=== PATIENT | male | born 1970 | race American Indian/Alaskan Native ===

== ENCOUNTER 2020-06-23 15:20 | Emergency (ER) | payer SELFPAY ==
[2020-06-23 15:40] VITALS: BP 159/103
--- NOTE | 2020-06-23 15:40 | Emergency Department Report ---
ED Lower Extremity HPI - General Chief Complaint: Back Pain/Injury Stated Complaint: BACK/LEG PAIN Time Seen by Provider: 06/23/20 15:39 Source: patient Mode of arrival: Ambulatory Limitations: No Limitations - History of Present Illness Initial Comments: Patient is a 50-year-old -[place] male that comes to the emergency room complaining of right lower extremity radicular pain. It radiates from his lumbar back down his right leg. This occurred suddenly when he stood at work today. He is has no fall or trauma. He has no dysuria, back pain, abdominal pain, nausea, vomiting, diarrhea. He has no fever or chills. He is ambulatory to the ER. Patient has taken nothing for pain prior to arrival. Patient has not seen his primary care. Movement makes it worse. Rest makes it better. Complaint: other -: Sudden, hour(s) Place: work Severity: moderate Improves With: nothing Worsens With: movement - Related Data Previous Rx's Medication Instructions Recorded Last Taken Type Cyclobenzaprine [Flexeril] 10 mg PO TID PRN #10 tablet 06/23/20 Unknown Rx Ibuprofen [Motrin] 800 mg PO Q8HR PRN #30 tablet 06/23/20 Unknown Rx predniSONE [Deltasone] 20 mg PO DAILY #5 tablet 06/23/20 Unknown Rx Allergies Allergy/AdvReac Type Severity Reaction Status Date / Time No Known Allergies Allergy Unverified 06/23/20 15:38 ED Review of Systems ROS: Stated complaint: BACK/LEG PAIN Other details as noted in HPI Comment: All other systems reviewed and negative ED Past Medical Hx - Past Medical History Previous Medical History?: No - Surgical History Past Surgical History?: No - Family History Family history: no significant - Social History Smoking Status: Never Smoker Substance Use Type: None - Medications Home Medications: Home Medications Medication Instructions Recorded Confirmed Last Taken Type Cyclobenzaprine [Flexeril] 10 mg PO TID PRN #10 tablet 06/23/20 Unknown Rx Ibuprofen [Motrin] 800 mg PO Q8HR PRN #30 tablet 06/23/20 Unknown Rx predniSONE [Deltasone] 20 mg PO DAILY #5 tablet 06/23/20 Unknown Rx ED Physical Exam - General Limitations: No Limitations General appearance: alert, in no apparent distress - Head Head exam: Present: atraumatic, normocephalic - Eye Eye exam: Present: normal appearance - ENT ENT exam: Present: mucous membranes moist - Neck Neck exam: Present: normal inspection - Respiratory Respiratory exam: Present: normal lung sounds bilaterally. Absent: respiratory distress - Cardiovascular Cardiovascular Exam: Present: regular rate, normal rhythm. Absent: systolic murmur, diastolic murmur, rubs, gallop - GI/Abdominal GI/Abdominal exam: Present: soft, normal bowel sounds - Rectal Rectal exam: Present: deferred - Extremities Exam Extremities exam: Present: normal inspection - Back Exam Back exam: Present: normal inspection - Neurological Exam Neurological exam: Present: alert, oriented X3 - Psychiatric Psychiatric exam: Present: normal affect, normal mood - Skin Skin exam: Present: warm, dry, intact, normal color. Absent: rash ED Course Vital Signs 06/23/20 15:38 Temperature 98.9 F Pulse Rate 99 H Respiratory 18 Rate Blood Pressure 159/103 O2 Sat by Pulse 99 Oximetry ED Lower Extremity MDM - Medical Decision Making radicular pain rle no s/s cauda equina no fall or trauma medicated in ER with some relief dc home with dc poc including pcp follow up. Pt verbalizes understanding. He will monitor his BP- no hx of htn; likely related to his pain Vital Signs (72 hours) 06/23/20 15:38 Temperature 98.9 F Pulse Rate 99 H Respiratory 18 Rate Blood Pressure 159/103 O2 Sat by Pulse 99 Oximetry - Differential Diagnosis sciatica Critical care attestation.: If time is entered above; I have spent that time in minutes in the direct care of this critically ill patient, excluding procedure time. ED Disposition Clinical Impression: Sciatica, Elevated blood pressure reading Disposition: DC-01 TO HOME OR SELFCARE Is pt being admited?: No Does the pt Need Aspirin: No Condition: Stable Instructions: Radicular Pain Additional Instructions: warm baths meds as ordered monitor your blood pressure Prescriptions: predniSONE [Deltasone] 20 mg PO DAILY #5 tablet Cyclobenzaprine [Flexeril] 10 mg PO TID PRN #10 tablet PRN Reason: Muscle Spasm Ibuprofen [Motrin] 800 mg PO Q8HR PRN #30 tablet PRN Reason: Pain, Moderate (4-6) Referrals: ABDULKADIR SPICER MD [Staff Physician] - 3-5 Days ASHIA NGUYEN MD [Staff Physician] - 3-5 Days Forms: Work/School Release Form(ED) Time of Disposition: 15:40
[2020-06-23] MEDS ORDERED: predniSONE 20 MG TAB PO ONE (15:41)
[2020-06-23] MEDS ORDERED: CYCLOBENZAPRINE 10 MG TAB PO ONE (15:41)
[2020-06-23] MEDS ORDERED: KETOROLAC 60 MG/2 ML INJ IM ONE (15:42)
== END 2020-06-23 17:01 | disposition home or self-care (01) ==
LOC: ED 15:20
DX: M54.30 Sciatica, unspecified side (principal); R03.0 Elevated blood-pressure reading, without diagnosis of hypertension; Z79.899 Other long term (current) drug therapy
CPT/HCPCS: 96372; 99282; J1885; J7512

== ENCOUNTER 2020-06-30 10:59 | Outpatient (CLI) | payer OTHER ==
--- NOTE | 2020-06-30 11:49 | XRay Report ---
LUMBOSACRAL SPINE 3 VIEWS INDICATION: BACK PAIN. COMPARISON: None. IMPRESSION: Normal alignment. Mild degenerative disc narrowing and marginal spurring is identified at all levels except L4-5. Mild diffuse facet arthropathy is also evident. The SI joints are unremark able. No acute osseous or soft tissue abnormality. Signer Name: Gerry Bonilla Jr, MD Signed: 06/30/2020 11:44 AM Workstation Name: [id number]
== END 2020-06-30 11:00 | disposition home or self-care (01) ==
LOC: XRAY 10:59
PROVIDERS: ATTEND Podiatrist
DX: M47.816 Spondylosis without myelopathy or radiculopathy, lumbar region (principal); M46.06 Spinal enthesopathy, lumbar region; M47.896 Other spondylosis, lumbar region
CPT/HCPCS: 72100

== ENCOUNTER 2020-12-11 13:33 | Emergency (ER) | payer SELFPAY ==
--- NOTE | 2020-12-11 16:24 | Emergency Department Report ---
ED Abdominal Pain HPI - General Chief Complaint: Abdominal Pain Stated Complaint: AB PAIN Time Seen by Provider: 12/11/20 15:01 Source: patient Mode of arrival: Ambulatory Limitations: No Limitations - History of Present Illness Initial Comments: 50-year-old male presents to the ER today with complaints of low abdominal pain. Patient states that his symptoms started a couple days ago. He states that he thought it was related to a stomach virus but pain has been getting worse. He states that it is an intermittent pain and feels like it is pulling. He also reports some mild nausea but no vomiting. He states that his last bowel movement was this morning, his stools were hard with some straining but no hematochezia or melena. He denies any diarrhea. He denies any associated fever or chills. He denies any UTI symptoms. He denies any testicular pain or swelling. He denies similar symptoms in the past. He denies any history of abdominal surgeries. MD Complaint: abdominal pain -: days(s) (couple days ago ) - Related Data Previous Rx's Medication Instructions Recorded Last Taken Type Cyclobenzaprine [Flexeril] 10 mg PO TID PRN #10 tablet 06/23/20 Unknown Rx Ibuprofen [Motrin] 800 mg PO Q8HR PRN #30 tablet 06/23/20 Unknown Rx predniSONE [Deltasone] 20 mg PO DAILY #5 tablet 06/23/20 Unknown Rx Ondansetron [Zofran Odt] 4 mg PO Q8HR PRN #12 tab.rapdis 12/11/20 Unknown Rx traMADoL [Ultram] 50 mg PO Q6HR PRN #12 tablet 12/11/20 Unknown Rx Allergies Allergy/AdvReac Type Severity Reaction Status Date / Time No Known Allergies Allergy Unverified 06/23/20 15:38 ED Review of Systems ROS: Stated complaint: AB PAIN Other details as noted in HPI Comment: All other systems reviewed and negative Constitutional: denies: chills, fever Eyes: denies: eye pain, eye discharge, vision change ENT: denies: ear pain, throat pain, dental pain, hearing loss, epistaxis, congestion Respiratory: denies: cough, shortness of breath, wheezing Gastrointestinal: abdominal pain, nausea, constipation. denies: vomiting, d iarrhea, hematemesis, hematochezia Genitourinary: denies: urgency, dysuria, frequency, hematuria, discharge, testicular pain, testicular mass Musculoskeletal: denies: back pain, joint swelling, arthralgia Skin: denies: rash, lesions, change in color, change in hair/nails, pruritus Neurological: denies: headache, weakness, numbness, paresthesias, confusion, abnormal gait, vertigo Psychiatric: denies: anxiety, depression, auditory hallucinations, visual hallucinations, homicidal thoughts, suicidal thoughts Hematological/Lymphatic: denies: easy bleeding, swollen glands ED Past Medical Hx - Past Medical History Previous Medical History?: Yes Hx Seizures: Yes - Surgical History Past Surgical History?: No - Social History Smoking Status: Current Every Day Smoker Substance Use Type: Alcohol - Medications Home Medications: Home Medications Medication Instructions Recorded Confirmed Last Taken Type Cyclobenzaprine [Flexeril] 10 mg PO TID PRN #10 tablet 06/23/20 Unknown Rx Ibuprofen [Motrin] 800 mg PO Q8HR PRN #30 tablet 06/23/20 Unknown Rx predniSONE [Deltasone] 20 mg PO DAILY #5 tablet 06/23/20 Unknown Rx Ondansetron [Zofran Odt] 4 mg PO Q8HR PRN #12 tab.rapdis 12/11/20 Unknown Rx traMADoL [Ultram] 50 mg PO Q6HR PRN #12 tablet 12/11/20 Unknown Rx ED Physical Exam - General Limitations: No Limitations General appearance: alert, in no apparent distress - Head Head exam: Present: atraumatic, normocephalic, normal inspection - Eye Eye exam: Present: normal appearance, PERRL, EOMI Pupils: Present: normal accommodation - ENT ENT exam: Present: normal exam, mucous membranes moist - Neck Neck exam: Present: normal inspection, full ROM - Respiratory Respiratory exam: Present: normal lung sounds bilaterally. Absent: respiratory distress, wheezes, rales, rhonchi - Cardiovascular Cardiovascular Exam: Present: regular rate, normal rhythm, normal heart sounds - GI/Abdominal GI/Abdominal exam: Present: soft, tenderness (ttp lower abdomen, more so suprapubic area with mild guarding but no rebound or rigidity ) - Neurological Exam Neurological exam: Present: alert, oriented X3, CN II-XII intact, normal gait - Psychiatric Psychiatric exam: Present: normal affect, normal mood - Skin Skin exam: Present: intact ED Course Vital Signs 12/11/20 15:00 Temperature 98.6 F Pulse Rate 117 H Respiratory 20 Rate Blood Pressure 135/78 O2 Sat by Pulse 100 Oximetry ED Medical Decision Making - Lab Data Result diagrams: 12/11/20 16:23 12/11/20 16:23 - Radiology Data Patient: GUCCI CAGE MR#: [id number] : 1970 Acct:[id number] Age/Sex: 50 / M ADM Date: 12/11/20 Loc: ED Attending Dr: Ordering Physician: LLOYD KAM Date of Service: 12/11/20 Procedure(s): CT abdomen pelvis w con Accession Number(s): [id number] cc: LLOYD KAM CT ABDOMEN AND PELVIS WITH CONTRAST INDICATION / CLINICAL INFORMATION: Pt complains of lower abd pain with nausea x 2 days. TECHNIQUE: Axial CT images were obtained through the abdomen and pelvis after 100 mL Omnipaque [address] scans at this location are performed using CT dose reductio n for PrematicsRA by means of automated exposure control. COMPARISON: None available. FINDINGS: LOWER CHEST: No significant abnormality. LIVER: Diffusely hypodense characteristic of fatty infiltration. GALLBLADDER: No significant abnormality. BILE DUCTS: No significant abnormality. PANCREAS: No significant abnormality. SPLEEN: No significant abnormality. ADRENALS: No significant abnormality. RIGHT KIDNEY / URETER: No significant abnormality. LEFT KIDNEY / URETER: No significant abnormality. STOMACH / SMALL BOWEL: No significant abnormality. COLON: No significant abnormality. APPENDIX: No significant abnormality. PERITONEUM: No free fluid. No free air. No fluid collection. LYMPH NODES: No significant adenopathy. AORTA / ARTERIES: No significant abnormality. IVC / VEINS: No significant abnormality. URINARY BLADDER: No significant abnormality. REPRODUCTIVE ORGANS: No significant abnormality. ADDITIONAL FINDINGS: None. SKELETAL SYSTEM: No significant abnormality. IMPRESSION: 1. No inflammatory process or bowel obstruction. 2. Hepatic steatosis. Signer Name: Imelda Whitney MD Signed: 12/11/2020 6:22 PM Workstation Name: [id number] Transcribed By: DAMEON Dictated By: Matthias Whitney MD Electronically Authenticated By: Matthias Whitney MD Signed Date/Time: 12/11/201821 DD/ 18 TD/TT: Critical care attestation.: If time is entered above; I have spent that time in minutes in the direct care of this critically ill patient, excluding procedure time. ED Disposition Clinical Impression: Lower abdominal pain Disposition: 01 HOME / SELF CARE / HOMELESS Is pt being admited?: No Does the pt Need Aspirin: No Condition: Stable Instructions: Abdominal Pain, Adult, [id number] Additional Instructions: Take the zofran and the ultram as prescribed. Follow up with your PCP next week. Return to ED if worse. Prescriptions: traMADoL [Ultram] 50 mg PO Q6HR PRN #12 tablet PRN Reason: Pain Ondansetron [Zofran Odt] 4 mg PO Q8HR PRN #12 tab.rapdis PRN Reason: Vomiting Referrals: [facility] [Provider Group] - 3-5 Days Forms: Work/School Release Form(ED) Time of Disposition: 19:14
[2020-12-11 17:13] LABS: Basophils # (Auto) 0.1 K/mm3 (0.0-0.1); Basophils % (Auto) 0.8 % (0.0-1.8); Eosinophils % (Auto) 0.6 % (0.0-4.3); Hematocrit 47.6 % (35.5-45.6); Hemoglobin 16.3 gm/dl (11.8-15.2); Lymphocytes # (Auto) 2.6 K/mm3 (1.2-5.4); Lymphocytes % (Auto) 43.9 % (13.4-35.0); Mean Corpuscular HGB Conc 34 % (32-34); Mean Corpuscular Volume 102 fl (84-94); Monocytes # (Auto) 0.5 K/mm3 (0.0-0.8); Monocytes % (Auto) 8.8 % (0.0-7.3); Red Blood Count 4.66 M/mm3 (3.65-5.03); Red Cell Distribution Width 14.6 % (13.2-15.2)
[2020-12-11 17:16] LABS: Platelet Count 211 K/mm3 (140-440)
[2020-12-11 17:37] LABS: Alanine Aminotransferase 27 units/L (7-56); Albumin 4.3 g/dL (3.9-5); BUN/Creatinine Ratio 11; Blood Urea Nitrogen 9 mg/dL (9-20); Calcium 9.1 mg/dL (8.4-10.2); Hemolysis Index 215
[2020-12-11 17:39] LABS: Bilirubin,Direct < 0.2 mg/dL (0-0.2)
--- NOTE | 2020-12-11 18:27 | Cat Scan Report ---
CT ABDOMEN AND PELVIS WITH CONTRAST INDICATION / CLINICAL INFORMATION: Pt complains of lower abd pain with nausea x 2 days. TECHNIQUE: Axial CT images were obtained through the abdomen and pelvis after 100 mL Omnipaque [address] scans at this location are performed using CT dose reduction for ALARA by means of automated exposure control. COMPARISON: None available. FINDINGS: LOWER CHEST: No significant abnormality. LIVER: Diffusely hypodense characteristic of fatty infiltration. GALLBLADDER: No significant abnormality. BILE DUCTS: No significant abnormality. PANCREAS: No significant abnormality. SPLEEN: No significant abnormality. ADRENALS: No significant abnormality. RIGHT KIDNEY / URETER: No significant abnormality. LEFT KIDNEY / URETER: No significant abnormality. STOMACH / SMALL BOWEL: No significant abnormality. COLON: No significant abnormality. APPENDIX: No significant abnormality. PERITONEUM: No free fluid. No free air. No fluid collection. LYMPH NODES: No significant adenopathy. AORTA / ARTERIES: No significant abnormality. IVC / VEINS: No significant abnormality. URINARY BLADDER: No significant abnormality. REPRODUCTIVE ORGANS: No significant abnormality. ADDITIONAL FINDINGS: None. SKELETAL SYSTEM: No significant abnormality. IMPRESSION: 1. No inflammatory process or bowel obstruction. 2. Hepatic steatosis. Signer Name: Imelda Whitney MD Signed: 12/11/2020 6:22 PM Workstation Name: [id number]
[2020-12-11 18:50] LABS: Bacteria,Urine 1+ /HPF (Negative); Bilirubin,Urine NEG (Negative); Blood,Urine SM (Negative); Color,Urine Yellow (Yellow); Protein,Urine <15 mg/dL mg/dL (Negative)
[2020-12-11 19:24] VITALS: BP 140/74
== END 2020-12-11 19:23 | disposition home or self-care (01) ==
LOC: ED 13:33
DX: R10.30 Lower abdominal pain, unspecified (principal); F17.200 Nicotine dependence, unspecified, uncomplicated; Z72.89 Other problems related to lifestyle; Z79.899 Other long term (current) drug therapy
CPT/HCPCS: 36415; 74177; 80048; 80076; 81001; 83690; 85025; 99284; Q9967

== ENCOUNTER 2021-02-03 22:47 | Emergency (ER) | payer OTHER ==
[2021-02-03] MEDS ORDERED: THIAMINE 100 MG, FOLIC ACID 1 MG, MULTIPLE VITAMIN INJ, ADULT 10 ML in SODIUM CHLORIDE ... IV ONE (23:39)
[2021-02-03] MEDS ORDERED: SODIUM CHLORIDE 0.9% 1000 ML 1,000 ML IV ONE (23:39)
--- NOTE | 2021-02-03 23:43 | Emergency Department Report ---
ED Alcohol HPI - General Chief Complaint: Alcohol Stated Complaint: ETOH/LEFT SIDE HIP PAIN Time Seen by Provider: 02/03/21 23:39 Source: patient, EMS Mode of arrival: Stretcher Limitations: No Limitations - History of Present Illness Initial Comments: Patient is a 50-year-old male who presents emergency room with complaints of lower back pain. Patient states he has chronic lower back pain. Patient states that his sciatica is been acting up lately. 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 Patient states the back pain is radiating down his right leg. Patient states the back pain is a 10 out of 10. Patient states he fell because of drinking and having back pain. Patient states he drank multiple beers. Patient states he drinks regularly. Patient denies recent travel. Patient denies recent international travel. Patient denies exposure to the novel coronavirus. Patient denies sick contacts. Patient denies fever and chills. Patient denies cough. Patient denies diarrhea. Patient denies coming in contact with anybody with symptoms of the novel coronavirus. Patient denies loss of consciousness. Patient denies any other injury. Patient denies hitting his head. Patient denies headache. Patient denies neck pain. Patient denies upper back pain. Patient denies chest pain and shortness of breath. MD Complaint: alcohol intoxication -: minute(s) Chronic Alcohol Use: Yes Previous Visits for Alcohol Intoxication?: Yes Recent Trauma: Yes Associated Symptoms: denies: nausea, vomiting, syncope, seizure, diaphoresis, tremors, abdominal pain, hematemesis, melena, depression, suicidality Treatments Prior to Arrival: none - Related Data Previous Rx's Medication Instructions Recorded Last Taken Type Cyclobenzaprine [Flexeril] 10 mg PO TID PRN #10 tablet 06/23/20 Unknown Rx Ibuprofen [Motrin] 800 mg PO Q8HR PRN #30 tablet 06/23/20 Unknown Rx predniSONE [Deltasone] 20 mg PO DAILY #5 tablet 06/23/20 Unknown Rx Ondansetron [Zofran Odt] 4 mg PO Q8HR PRN #12 tab.rapdis 12/11/20 Unknown Rx traMADoL [Ultram 50 MG tab] 50 mg PO Q6HR PRN #12 tablet 02/04/21 Unknown Rx Allergies Allergy/AdvReac Type Severity Reaction Status Date / Time No Known Allergies Allergy Verified 02/03/21 23:42 ED Review of Systems ROS: Stated complaint: ETOH/LEFT SIDE HIP PAIN Other details as noted in HPI Constitutional: denies: chills, fever Eyes: denies: eye pain, eye discharge, vision change ENT: denies: ear pain, throat pain Respiratory: denies: cough, shortness of breath, wheezing Cardiovascular: denies: chest pain, palpitations Endocrine: no symptoms reported Gastrointestinal: denies: abdominal pain, nausea, diarrhea Genitourinary: denies: urgency, dysuria Musculoskeletal: back pain. denies: joint swelling, arthralgia Skin: denies: rash, lesions Neurological: denies: headache, weakness, paresthesias Psychiatric: denies: anxiety, depression Hematological/Lymphatic: denies: easy bleeding, easy bruising ED Past Medical Hx - Past Medical History Previous Medical History?: Yes Hx Seizures: Yes Additional medical history: ETOH - Surgical History Past Surgical History?: No - Family History Family history: no significant - Social History Smoking Status: Current Every Day Smoker Substance Use Type: Alcohol - Medications Home Medications: Home Medications Medication Instructions Recorded Confirmed Last Taken Type Cyclobenzaprine [Flexeril] 10 mg PO TID PRN #10 tablet 06/23/20 Unknown Rx Ibuprofen [Motrin] 800 mg PO Q8HR PRN #30 tablet 06/23/20 Unknown Rx predniSONE [Deltasone] 20 mg PO DAILY #5 tablet 06/23/20 Unknown Rx Ondansetron [Zofran Odt] 4 mg PO Q8HR PRN #12 tab.rapdis 12/11/20 Unknown Rx traMADoL [Ultram 50 MG tab] 50 mg PO Q6HR PRN #12 tablet 02/04/21 Unknown Rx ED Physical Exam - General Limitations: No Limitations General appearance: alert, in no apparent distress - Head Head exam: Present: atraumatic, normocephalic - Eye Eye exam: Present: normal appearance - ENT ENT exam: Present: mucous membranes moist - Neck Neck exam: Present: normal inspection - Respiratory Respiratory exam: Present: normal lung sounds bilaterally. Absent: respiratory distress - Cardiovascular Cardiovascular Exam: Present: regular rate, normal rhythm. Absent: systolic murmur, diastolic murmur, rubs, gallop - GI/Abdominal GI/Abdominal exam: Present: soft, normal bowel sounds - Rectal Rectal exam: Present: deferred - Extremities Exam Extremities exam: Present: normal inspection. Absent: full ROM, tenderness - Back Exam Back exam: Present: normal inspection, paraspinal tenderness, vertebral tenderness - Neurological Exam Neurological exam: Present: alert, oriented X3 - Psychiatric Psychiatric exam: Present: normal affect, normal mood - Skin Skin exam: Present: warm, dry, intact, normal color. Absent: rash ED Course Vital Signs 02/03/21 02/03/21 02/03/21 22:59 23:44 23:46 Temperature 98.4 F Pulse Rate 98 H 91 H 93 H Respiratory 14 25 H 12 Rate Blood Pressure Blood Pressure 133/95 [Left] O2 Sat by Pulse 100 100 Oximetry 02/04/21 02/04/21 02/04/21 00:00 00:15 00:31 Temperature Pulse Rate 94 H 94 H 92 H Respiratory 13 12 16 Rate Blood Pressure 114/78 131/76 Blood Pressure [Left] O2 Sat by Pulse 99 98 97 Oximetry 02/04/21 02/04/21 02/04/21 00:45 01:01 01:15 Temperature Pulse Rate 84 80 96 H Respiratory 15 15 11 L Rate Blood Pressure 131/76 117/73 117/73 Blood Pressure [Left] O2 Sat by Pulse 98 99 99 Oximetry 02/04/21 02/04/21 02/04/21 01:31 01:45 02:01 Temperature Pulse Rate 78 83 93 H Respiratory 15 13 12 Rate Blood Pressure 117/73 117/73 133/80 Blood Pressure [Left] O2 Sat by Pulse 98 99 98 Oximetry 02/04/21 02/04/21 02/04/21 02:15 02:31 02:45 Temperature Pulse Rate 80 79 81 Respiratory 14 14 13 Rate Blood Pressure 133/80 133/80 133/80 Blood Pressure [Left] O2 Sat by Pulse 99 98 98 Oximetry 02/04/21 02/04/21 02/04/21 03:01 03:15 03:31 Temperature Pulse Rate 102 H 79 84 Respiratory 14 13 14 Rate Blood Pressure 109/63 109/63 109/63 Blood Pressure [Left] O2 Sat by Pulse 96 98 98 Oximetry 02/04/21 02/04/21 02/04/21 03:45 04:01 04:06 Temperature Pulse Rate 78 79 Respiratory 13 13 20 Rate Blood Pressure 109/63 109/57 Blood Pressure [Left] O2 Sat by Pulse 98 96 99 Oximetry - Reevaluation(s) Reevaluation #1: Patient answering questions appropriately. Patient alert and oriented x4. Patient states his back pain is improved with rest. 02/04/21 05:32 Reevaluation #2: I discussed all results and clinical findings with patient. I discussed plan of care with patient. Patient agrees with plan of care. Patient is stable for d ischarge. Patient will be discharged home. Patient given discharge instructions. Patient voiced understanding of discharge instructions. 02/04/21 06:13 ED Medical Decision Making - Lab Data Result diagrams: 02/03/21 23:44 02/03/21 23:44 - Radiology Data Radiology results: report reviewed LUMBAR SPINE 3 VIEWS INDICATION / CLINICAL INFORMATION: back pain. fall. COMPARISON: 06/30/2020 FINDINGS: VERTEBRAE: No acute fracture. No significant malalignment. DISC SPACES / FACET JOINTS:Mild degeneration of the lumbar spine, most pronounced at L2-L3. PARASPINAL SOFT TISSUES:No significant abnormality. ADDITIONAL FINDINGS: None. - Medical Decision Making Patient is a 50-year-old male who presents emergency room with complaints of acute on chronic lower back pain, fall, alcohol intoxication. Patient had labs done. Patient's labs unremarkable save for elevated alcohol. Patient given a banana bag and fluids. Patient's vital signs stable while in the ER. Patient's pain improved with rest. Patient x-ray of L-spine to rule out fracture from recent fall. Patient x-ray was negative for acute findings patient degenerative disc disease. Patient will require outpatient management of this pain. Patient already given Ultram and Tylenol. Seeing orthopedics for further evaluation and treatment. Patient does not require further ER services. Patient not require inpatient service. Patient stable for discharge. For the acute intoxication, patient was monitored for multiple hours until he was clinically sober. I discussed all results and clinical findings with patient. I discussed plan of care with patient. Patient agrees with plan of care. Patient is stable for discharge. Patient will be discharged home. Patient given discharge instructions. Patient voiced understanding of discharge instructions. - Differential Diagnosis Acute alcohol intoxication. Fall. Acute on chronic back pain. Critical care attestation.: If time is entered above; I have spent that time in minutes in the direct care of this critically ill patient, excluding procedure time. ED Disposition Clinical Impression: Fall Qualifiers: Encounter type: initial encounter Qualified Code(s): W19.XXXA - Unspecified fall, initial encounter Acute alcohol intoxication Qualifiers: Complication of substance-induced condition: uncomplicated Qualified Code(s): F10.920 - Alcohol use, unspecified with intoxication, uncomplicated Lower back pain Qualifiers: Chronicity: acute Back pain laterality: bilateral Sciatica presence: with sciatica Sciatica laterality: sciatica of right side Qualified Code(s): M54.41 - Lumbago with sciatica, right side Lumbar sprain Qualifiers: Encounter type: initial encounter Qualified Code(s): S33.5XXA - Sprain of ligaments of lumbar spine, initial encounter Disposition: HOME / SELF CARE / HOMELESS Is pt being admited?: No Does the pt Need Aspirin: No Condition: Stable Instructions: Binge-Drinking Information, Adult, Back Exercises, [id number], Low Back Sprain or Strain Rehab-SportsMed Additional Instructions: Patient to avoid alcohol use. Patient to follow-up with primary care in 2 to 3 days. Patient to follow-up with orthopedist in 2 to 3 days. Patient to rest. Patient to increase water. Patient to avoid strenuous exercise or heavy lifting until cleared by orthopedist. Patient to take Tylenol or ibuprofen as needed for pain. Patient to take meds as directed. Patient to return to the ER if condition worsens, changes or new symptoms arise. Prescriptions: traMADoL [Ultram 50 MG tab] 50 mg PO Q6HR PRN #12 tablet PRN Reason: Pain Referrals: PRIMARY CAREMD [Primary Care Provider] - 2-3 Days ASHIA NGUYEN MD [Staff Physician] - 2-3 Days Time of Disposition: 06:18
[2021-02-04 00:05] LABS: Basophils % (Auto) 0.5 % (0.0-1.8); Eosinophils % (Auto) 0.8 % (0.0-4.3); Hematocrit 44.4 % (35.5-45.6); Hemoglobin 15.1 gm/dl (11.8-15.2); Lymphocytes # (Auto) 2.1 K/mm3 (1.2-5.4); Lymphocytes % (Auto) 44.8 % (13.4-35.0); Mean Corpuscular HGB Conc 34 % (32-34); Mean Corpuscular Volume 101 fl (84-94); Monocytes # (Auto) 0.5 K/mm3 (0.0-0.8); Platelet Count 235 K/mm3 (140-440); Red Blood Count 4.41 M/mm3 (3.65-5.03); Red Cell Distribution Width 14.6 % (13.2-15.2)
[2021-02-04 00:30] LABS: Alanine Aminotransferase 23 units/L (7-56); Albumin 4.2 g/dL (3.9-5); Blood Urea Nitrogen 11 mg/dL (9-20); Calcium 8.6 mg/dL (8.4-10.2); Hemolysis Index 1
--- NOTE | 2021-02-04 00:33 | XRay Report ---
LUMBAR SPINE 3 VIEWS INDICATION / CLINICAL INFORMATION: back pain. fall. COMPARISON: 06/30/2020 FINDINGS: VERTEBRAE: No acute fracture. No significant malalignment. DISC SPACES / FACET JOINTS:Mild degeneration of the lumbar spine, most pronounced at L2-L3. PARASPINAL SOFT TISSUES:No significant abnormality. ADDITIONAL FINDINGS: None. Signer Name: Amol Cuellar DO Signed: 02/04/2021 12:29 AM Workstation Name: [id number]
[2021-02-04 00:40] LABS: BUN/Creatinine Ratio 16
[2021-02-04 08:15] VITALS: BP 151/97
== END 2021-02-04 08:14 | disposition home or self-care (01) ==
LOC: ED 22:47
DX: S33.5XXA Sprain of ligaments of lumbar spine, initial encounter (principal); M54.41 Lumbago with sciatica, right side; F10.129 Alcohol abuse with intoxication, unspecified; R56.9 Unspecified convulsions; F17.200 Nicotine dependence, unspecified, uncomplicated; W19.XXXA Unspecified fall, initial encounter; Y93.89 Activity, other specified; Y92.89 Other specified places as the place of occurrence of the external cause; Y99.8 Other external cause status
CPT/HCPCS: 36415; 72100; 80053; 85025; 96365; 96366; 99284; J3411; J7030; 80320; G0480

== ENCOUNTER 2021-09-22 19:19 | Emergency (ER) | payer SELFPAY ==
[2021-09-22 19:55] VITALS: BP 140/86
[2021-09-22] MEDS ORDERED: ACETAMINOPHEN 500 MG TAB PO ONE (21:40)
[2021-09-22] MEDS ORDERED: TETANUS,DIPH,PERTUSS(ACELL) VACCINE 0.5 ML SYRINGE IM ONE (21:42)
--- NOTE | 2021-09-22 21:48 | Emergency Department Report ---
ED General Adult HPI - General Chief complaint: Fall Stated complaint: GROUND LEVEL FALL Time Seen by Provider: 09/22/21 21:38 Source: EMS Mode of arrival: Ambulatory Limitations: No Limitations - History of Present Illness Initial comments: Patient 51-year-old -[place]aced[place] male who presents for scalp and forehead laceration. Patient states he slipped and fell at home impacting lobes corner wall of his living room. Patient recalls event denies LOC. Patient did arrive via ambulance. With approximately 8 cm laceration to frontal scalp and foreh ead. Bleeding was controlled via direct pressure pressure dressing applied by EMS. Patient denies LOC denies headache at this time. There is no dizziness lightheadedness. No decrease in vision. No blood from nose or mouth. Patient is amatory with steady gait at this time. Patient complains of 3/10 right posterior neck pain. There are no other lacerations or abrasions or bleeding. Patient denies other injury. Patient is alert oriented x3 at this time, and ambulatory with steady gait. There has been no LOC, last tetanus is unknown. Patient endorses 2 beers tonight. Severity scale (0 -10): 0 - Related Data Previous Rx's Medication Instructions Recorded Last Taken Type Cyclobenzaprine [Flexeril] 10 mg PO TID PRN #10 tablet 06/23/20 Unknown Rx Ibuprofen [Motrin] 800 mg PO Q8HR PRN #30 tablet 06/23/20 Unknown Rx predniSONE [Deltasone] 20 mg PO DAILY #5 tablet 06/23/20 Unknown Rx Ondansetron [Zofran Odt] 4 mg PO Q8HR PRN #12 tab.rapdis 12/11/20 Unknown Rx traMADoL [Ultram 50 MG tab] 50 mg PO Q6HR PRN #12 tablet 02/04/21 Unknown Rx Acetaminophen/Codeine [Tylenol 1 tab PO Q6H PRN #12 tab 09/22/21 Unknown Rx /Codeine # 3 tab] cephALEXin [Keflex] 500 mg PO Q8HR 7 Days #21 cap 09/22/21 Unknown Rx Allergies Allergy/AdvReac Type Severity Reaction Status Date / Time No Known Allergies Allergy Verified 02/03/21 23:42 ED Review of Systems ROS: Stated complaint: GROUND LEVEL FALL Other details as noted in HPI Constitutional: denies: chills, fever Eyes: denies: eye pain, eye discharge, vision change ENT: denies: ear pain, throat pain Respiratory: denies: cough, shortness of breath, wheezing Cardiovascular: denies: chest pain, palpitations Endocrine: no symptoms reported Gastrointestinal: denies: abdominal pain, nausea, diarrhea Genitourinary: denies: urgency, dysuria Musculoskeletal: other (Neck pain) Skin: other (Right anterior scalp and forehead laceration) Neurological: denies: headache, weakness, numbness, paresthesias, confusion, abnormal gait, vertigo Psychiatric: denies: anxiety, depression Hematological/Lymphatic: denies: easy bleeding, easy bruising ED Past Medical Hx - Past Medical History Previous Medical History?: Yes Hx Seizures: Yes Additional medical history: ETOH - Surgical History Past Surgical History?: No - Social History Smoking Status: Current Every Day Smoker Substance Use Type: Alcohol - Medications Home Medications: Home Medications Medication Instructions Recorded Confirmed Last Taken Type Cyclobenzaprine [Flexeril] 10 mg PO TID PRN #10 tablet 06/23/20 Unknown Rx Ibuprofen [Motrin] 800 mg PO Q8HR PRN #30 tablet 06/23/20 Unknown Rx predniSONE [Deltasone] 20 mg PO DAILY #5 tablet 06/23/20 Unknown Rx Ondansetron [Zofran Odt] 4 mg PO Q8HR PRN #12 tab.rapdis 12/11/20 Unknown Rx traMADoL [Ultram 50 MG tab] 50 mg PO Q6HR PRN #12 tablet 02/04/21 Unknown Rx Acetaminophen/Codeine [Tylenol 1 tab PO Q6H PRN #12 tab 09/22/21 Unknown Rx /Codeine # 3 tab] cephALEXin [Keflex] 500 mg PO Q8HR 7 Days #21 cap 09/22/21 Unknown Rx ED Physical Exam - General Limitations: No Limitations General appearance: alert, in no apparent distress - Head Head exam: Present: normocephalic - Expanded Head Exam Expanded Head exam: Present: laceration (8 cm anterior scalp and forehead). Absent: abrasion, contusion, hematoma, racoon eyes, loyd's sign, general tenderness, tenderness of temporal artery, CSF rhinorrhea, CSF otorrhea 1 - irreg laceration 8 cm - Eye Eye exam: Present: normal appearance, PERRL, EOMI. Absent: conjunctival injection, nystagmus, periorbital swelling, periorbital tenderness Pupils: Present: normal accommodation - ENT ENT exam: Present: normal orophraynx, mucous membranes moist, TM's normal bilaterally, normal external ear exam - Neck Neck exam: Present: normal inspection, tenderness (Mild right lateral posterior paraspinous muscle tenderness no posterior vertebral point tenderness range of motion is intact unrestricted to all quadrants. There is no ecchymosis no crepitus no step-off.), full ROM. Absent: lymphadenopathy, thyromegaly - Expanded Neck Exam Expanded Neck exam: Absent: midline deformity, anterior neck swelling, thyroid mass, carotid bruit, tracheal deviation - Respiratory Respiratory exam: Present: normal lung sounds bilaterally. Absent: respiratory distress, wheezes, stridor, chest wall tenderness - Cardiovascular Cardiovascular Exam: Present: regular rate, normal rhythm, normal heart sounds. Absent: systolic murmur, diastolic murmur, rubs, gallop - GI/Abdominal GI/Abdominal exam: Present: soft, normal bowel sounds. Absent: distended, tenderness, guarding, rebound, rigid, bruit, hernia - Rectal Rectal exam: Present: deferred - Extremities Exam Extremities exam: Present: normal inspection, full ROM, normal capillary refill. Absent: tenderness - Back Exam Back exam: Present: normal inspection, full ROM. Absent: paraspinal tenderness, vertebral tenderness - Neurological Exam Neurological exam: Present: alert, oriented X3, CN II-XII intact, normal gait, reflexes normal. Absent: motor sensory deficit - Expanded Neurological Exam Expanded Patient oriented to: Present: person, place, time Speech: Present: fluid speech Cranial nerves: EOM's Intact: Normal, Gag Reflex: Normal, Tongue Deviation: Normal, Nystagmus: Normal, Facial Sensation: Normal Cerebellar function: Finger to Nose: Normal, Romberg: Normal Motor strength exam: RUE: 5, LUE: 5, RLE: 5, LLE: 5 Best Eye Response (John): (4) open spontaneously Best Motor Response ([place]): (6) obeys commands Best Verbal Response (John): (5) oriented [place] Total: 15 - Psychiatric Psychiatric exam: Present: normal affect, normal mood - Skin Skin exam: Present: warm, dry, normal color, other (laceration as above ). Absent: rash ED Course Vital Signs 09/22/21 09/22/21 19:52 22:03 Temperature 98.1 F Pulse Rate 89 Respiratory 16 16 Rate Blood Pressure 140/86 O2 Sat by Pulse 100 Oximetry - Laceration /Wound Repair Right Anterior Head Wound Location: head, face (Right anterior parietal and forehead laceration approximately 8 cm irregular no nerve muscle or tendon damage no active bleeding. No crepitus no step-off no indentation) Wound Length (cm): 8 Wound's Depth, Shape: superficial, irregular Wound Explored: clean Irrigated w/ Saline (ccs): 150 Betadine Prep?: Yes Anesthesia: Lidocaine w/ Epi Volume Anesthetic (ccs): 4 Wound Debrided: None required wound was cleaned no foreign bodies manually explored and irr Wound Repaired With: sutures Suture Size/Type: 4:0 (Vicryl) Number of Sutures: 20 (Running) Layer Closure?: No Sterile Dressing Applied?: Yes Progress: Forehead and anterior parietal scalp laceration 8 cm no nerve muscle or tendon damage no foreign body site cleaned with Betadine solution anesthesia with 1% lidocaine with epi x4 cc anesthesia is achieved. Wound irrigated with 150 cc sterile saline. Wound closed with 4-0 Vicryl x20 sutures running. Edges well approximated all bleeding is controlled patient tolerated procedure with minimal distress. CMS remains intact. Patient given wound care instructions including follow-up primary care doctor in 2 days for wound check. In 7 to 10 days should sutures not dissolved. ED Medical Decision Making - Radiology Data Radiology results: report reviewed, image reviewed CT HEAD WITHOUT CONTRAST INDICATION / CLINICAL INFORMATION: Fall with scalp, facial laceration. TECHNIQUE: All CT scans at this location are performed using CT dose reduction for ALARA by means of automated exposure control. COMPARISON: None available. FINDINGS: BRAIN PARENCHYMA: No acute intracranial hemorrhage. No evidence of recent infarct. No mass effect or midline shift. There are bilateral basal ganglial calcifications. VENTRICULAR SYSTEM/EXTRA-AXIAL SPACES: Ventricles are normal for age. No extra- axial fluid collection. ORBITS: Normal as visualized. SKELETAL SYSTEM/SOFT TISSUES: There is an anterior right frontoparietal scalp laceration. No other acute soft tissue or osseous abnormality. PARANASAL SINUSES/MASTOID AIR CELLS: No significant abnormality. ADDITIONAL FINDINGS: None. IMPRESSION: 1. No acute intracranial abnormality. 2. Right frontoparietal scalp laceration. Signer Name: Neto Wilson MD Signed: 09/22/2021 10:03 PM Workstation Name: [id number] Transcribed By: CHERYL Dictated By: Neto Wilson MD Electronically Authenticated By: Neto Wilson MD Signed Date/Time: 09/22/212202 DD/ 01 TD/TT: INDICATION: Neck pain after fall. COMPARISON: None available. TECHNIQUE: Axial, coronal and sagittal CT imaging of the cervical spine without contrast was performed. All CT scans at this location are performed using CT dose reduction for ALARA by means of automated exposure control. FINDINGS: ALIGNMENT: Normal alignment. VERTEBRAE: No fracture. Vertebral body heights are preserved. C1 and C2 are congruent. SPONDYLOSIS: Moderate discogenic degenerative changes are seen at C5-C6 with a disc osteophyte complex at that level resulting in mild central canal stenosis. Moderate bilateral neural foraminal stenosis is also noted at that level. Multilevel mild discogenic degenerative changes are noted elsewhere. No other significant central canal or neural foraminal stenosis. SOFT TISSUES: No significant soft tissue abnormality. ADDITIONAL FINDINGS: No significant additional findings. IMPRESSION: 1. No acute findings. 2. Moderate cervical spondylosis as detailed above. Signer Name: Neto Wilson MD Signed: 09/22/2021 10:06 PM Workstation Name: [id number] Transcribed By: CHERYL Dictated By: Neto Wilson MD Electronically Authenticated By: Neto Wilson MD Signed Date/Time: 09/22/212205 DD/ 02 TD/TT: - Medical Decision Making Patient 51-year-old -[place] male who presents for scalp and forehead laceration. Patient states he slipped and fell at home impacting lobes corner wall of his living room. Patient recalls event denies LOC. Patient did arrive via ambulance. With approximately 8 cm laceration to frontal scalp and forehead. Bleeding was controlled via direct pressure pressure dressing applied by EMS. Patient denies LOC denies headache at this time. There is no dizziness lightheadedness. No decrease in vision. No blood from nose or mouth. Patient is amatory with steady gait at this time. Patient complains of 3/10 right posterior neck pain. There are no other lacerations or abrasions or bleeding. Patient denies other injury. Patient is alert oriented x3 at this time, and ambulatory with steady gait. There has been no LOC, last tetanus is unknown. Patient endorses 2 beers tonight. Forehead laceration repair see procedure note. CT scan head and C-spine no bleed no mass noted laceration no free air or blood collection. No fractures. Cervical chronic spondylosis cervical. No acute finding. Patient tolerated procedure with minimal distress. Patient will follow-up primary care doctor in 2 days for wound check in 7 to 10 days should sutures not resolved. Patient will be DC'd to home with prescriptions. Patient denies headache at this time patient is alert oriented x3 amatory with steady gait. Patient to home via family members and POV. Patient given head injury precautions discussed same with family members. All verbalized agreement and understanding of same patient DC'd home in stable condition at this time. Patient remains alert oriented x3 with no acute distress Critical care attestation.: If time is entered above; I have spent that time in minutes in the direct care of this critically ill patient, excluding procedure time. ED Disposition Clinical Impression: Fall Qualifiers: Encounter type: initial encounter Qualified Code(s): W19.XXXA - Unspecified fall, initial encounter Forehead laceration Qualifiers: Encounter type: initial encounter Qualified Code(s): S01.81XA - Laceration wi thout foreign body of other part of head, initial encounter Head injury Qualifiers: Encounter type: initial encounter Qualified Code(s): S09.90XA - Unspecified injury of head, initial encounter Disposition: HOME / SELF CARE / HOMELESS Is pt being admited?: No Does the pt Need Aspirin: No Condition: Stable Instructions: Sutured Wound Care, [id number], Wound Care, Adult, Head Injury, Adult Additional Instructions: Take medications as prescribed, follow-up with your doctor in 2 days for wound check. 7 to 10 days should sutures not start to dissolve. Head injury precautions as directed. Return to emergency department should symptoms worsen. Prescriptions: cephALEXin [Keflex] 500 mg PO Q8HR 7 Days #21 cap Acetaminophen/Codeine [Tylenol /Codeine # 3 tab] 1 tab PO Q6H PRN #12 tab PRN Reason: pain Referrals: MEREDITH KNOWLES MD [Staff Physician] - 3-5 Days Forms: Work/School Release Form(ED) Time of Disposition: 23:23
--- NOTE | 2021-09-22 22:07 | Cat Scan Report ---
CT HEAD WITHOUT CONTRAST INDICATION / CLINICAL INFORMATION: Fall with scalp, facial laceration. TECHNIQUE: All CT scans at this location are performed using CT dose reduction for ALARA by means of automated exposure control. COMPARISON: None available. FINDINGS: BRAIN PARENCHYMA: No acute intracranial hemorrhage. No evidence of recent infarct. No mass effect or midline shift. There are bilateral basal ganglial calcifications. VENTRICULAR SYSTEM/EXTRA-AXIAL SPACES: Ventricles are normal for age. No extra-axial fluid collection . ORBITS: Normal as visualized. SKELETAL SYSTEM/SOFT TISSUES: There is an anterior right frontoparietal scalp laceration. No other ac [place] soft tissue or osseous abnormality. PARANASAL SINUSES/MASTOID AIR CELLS: No significant abnormality. ADDITIONAL FINDINGS: None. IMPRESSION: 1. No acute intracranial abnormality. 2. Right frontoparietal scalp laceration. Signer Name: Neto Wilson MD Signed: 09/22/2021 10:03 PM Workstation Name: [id number]
--- NOTE | 2021-09-22 22:10 | Cat Scan Report ---
CT CERVICAL SPINE WITHOUT CONTRAST INDICATION: Neck pain after fall. COMPARISON: None available. TECHNIQUE: Axial, coronal and sagittal CT imaging of the cervical spine without contrast was performe d. All CT scans at this location are performed using CT dose reduction for ALARA by means of automat ed exposure control. FINDINGS: ALIGNMENT: Normal alignment. VERTEBRAE: No fracture. Vertebral body heights are preserved. C1 and C2 are congruent. SPONDYLOSIS: Moderate discogenic degenerative changes are seen at C5-C6 with a disc osteophyte comple x at that level resulting in mild central canal stenosis. Moderate bilateral neural foraminal stenosi s is also noted at that level. Multilevel mild discogenic degenerative changes are noted elsewhere. N o other significant central canal or neural foraminal stenosis. SOFT TISSUES: No significant soft tissue abnormality. ADDITIONAL FINDINGS: No significant additional findings. IMPRESSION: 1. No acute findings. 2. Moderate cervical spondylosis as detailed above. Signer Name: Neto Wilson MD Signed: 09/22/2021 10:06 PM Workstation Name: [id number]
[2021-09-22] MEDS ORDERED: LIDOCAINE 1%/EPINEPHRINE 1:100,000 VIAL (20 ML) INFILTRATI NR (22:45)
== END 2021-09-22 23:50 | disposition home or self-care (01) ==
LOC: ED 19:19
DX: S01.81XA Laceration without foreign body of other part of head, initial encounter (principal); S09.90XA Unspecified injury of head, initial encounter; W19.XXXA Unspecified fall, initial encounter; Y93.89 Activity, other specified; Y92.89 Other specified places as the place of occurrence of the external cause; Y99.8 Other external cause status
CPT/HCPCS: 70450; 72125; 90471; 90715; 99284